=== PATIENT | female | born 1970 | race Caucasian/White ===

== ENCOUNTER 2017-04-17 15:16 | Emergency (ER) | payer MEDICARE, MEDICAID ==
[~2017-04-17] VITALS: Ht 157.5 cm; Wt 142.5 kg
[~2017-04-17 15:16] MED LIST: IRON325 PO; SYNTHROID75 MCG PO; TUMS PO
[2017-04-17] MEDS ORDERED: CALCITRIOL0.25 MCG PO (15:27)
[2017-04-17 16:24] LABS: ABSOLUTE EOSINOPHILS 0.3 thou/uL (0.0-0.7); ABSOLUTE LYMPHOCYTES 1.2 thou/uL (0.8-5.3); ABSOLUTE MONOCYTES 0.6 thou/uL (0.0-1.2); ABSOLUTE NEUTROPHILS 3.4 thou/uL (1.6-8.1); BASOPHILS 0.7 %; EOSINOPHILS 4.9 %; HEMATOCRIT 30.6 % (37.0-47.0); HEMOGLOBIN 9.6 gm/dL (12.0-15.0); LYMPHOCYTES 21.5 %; MCH 25.2 pg (26.0-34.0); MCHC 31.5 g/dL (28.0-37.0); MCV 79.8 fL (80.0-100.0); MONOCYTES 11.4 %; MPV 8.5 fl. (7.2-11.1); NUCLEATED RBCS 0 /100WBC; PLATELET COUNT* 230 thou/uL (150-400); POLYS 61.5 %; RBC 3.83 mil/uL (4.20-5.00); RDW-CV 16.3 % (10.5-14.5); WBC 5.5 thou/uL (4.0-11.0)
[2017-04-17 16:44] LABS: ANION GAP 11 mmol/L (7-16); BUN 9 mg/dL (7-18); CHLORIDE 97 mmol/L (98-107); CO2 30 mmol/L (21-32); CREATININE 0.8 mg/dL (0.6-1.3); GLUCOSE 110 mg/dL (70-99); POTASSIUM 3.7 mmol/L (3.5-5.1); SODIUM 138 mmol/L (136-145)
[2017-04-17 16:47] LABS: CALCIUM < 5.0 mg/dL (8.5-10.1)
[2017-04-17 16:51] LABS: ALBUMIN 3.9 g/dL (3.4-5.0); ALKALINE PHOSPHATASE 66 U/L (46-116); MAGNESIUM 1.7 mg/dL (1.8-2.4); SGOT 83 U/L (15-37); SGPT 46 U/L (30-65); TOTAL BILIRUBIN 0.3 mg/dL (<0.1-1.0); TOTAL PROTEIN 7.7 g/dL (6.4-8.2); TROPONIN-I LEVEL <0.06 ng/mL (<0.06)
[2017-04-17 18:59] VITALS: BP 144/113
--- NOTE | 2017-04-18 10:57 | EKG ---
[place] [address] ELECTROCARDIOGRAM REPORT Name: BALJIT WAKEFIELD Room: [facility]#: [id number] Admission: 04/17/17 Attend Phys: Discharge: 04/17/17 Date of : 66 Report #: [id number] THIS REPORT FOR: //name// [facility] ED Test Date: 2017-04-17 Test Time: 15:27:20 Pat Name: BALJIT WAKEFIELD Department: Room: Gender: F Counter [employer]: PAM : 1970 Requested By: José Luis Baird Order Number: [id number] MD: Elias Arenas Measurements Intervals [place] Rate: 73 P: 16 TN: 183 QRS: 7 QRSD: 88 T: 47 QT: 477 QTc: 526 Interpretive Statements Sinus rhythm Probable septal infarct, old Prolonged QT interval Compared to ECG 03/06/2017 11:13:00 no changes Electronically Signed On 04-18-2017 10:56:48 [employer] by Elias Arenas [email or web address] <ELECTRONICALLY SIGNED> By: Elias Arenas MD, [facility] 04/18/17 1056 D: 12/1526 26 Elias Arenas MD, FACC /EPI
== END 2017-04-17 19:00 | disposition short-term general hospital (02) ==
LOC: M.ERS 15:16
PROVIDERS: Emergency Medicine Emergency Medical Services
DX: E87.6 Hypokalemia (principal); E89.0 Postprocedural hypothyroidism